=== PATIENT | female | born 1940 | race Caucasian/White ===

== ENCOUNTER 2016-07-10 23:13 | Inpatient (IN) | payer MEDICARE ==
[~2016-07-10] VITALS: Ht 162.5 cm; Wt 59.0 kg
--- NOTE | ~2016-07-10 | PR ---
[place], [place] PROGRESS NOTE NAME: SERAFIN CHAPMAN UNIT #: [id number] ROOM: 310 DOCTOR: NERISSA GORDON BIRTHDATE: [birth year] DOS: 07/14/2016 SUMMARY OF VISIT: The patient was assessed in the dining room where she was sitting in a Hue chair waiting for breakfast. Her only complaint was that she wanted a pillow behind her back, which the garcia milieu accommodated. No voiced complaints from nursing other than the fact that she is having some Dopplers done of her lower extremities. MENTAL STATUS: She is alert and oriented to person, place, I do not think time. Very pleasant, but exceptionally confused. No overt signs of auditory or visual hallucinations, delusions or paranoia. PLAN: She is currently on 9.5 mg of Exelon and Remeron 15 mg at bedtime. I added a low dose Latuda to help with some of her agitation, anxiety and treatment resistant depression, this seems to have helped. Goal is to continue titrating the Exelon to the maximum dose. I will evaluate her tomorrow to see if this would be appropriate to go ahead and increase. BOYD GORDON CNP CM:PNTRANS [phone] NERISSA GORDON 07/14/16 1008 interface
--- NOTE | ~2016-07-10 | PR ---
[place], [place] PROGRESS NOTE NAME: SERAFIN CHAPMAN UNIT #: [id number] ROOM: 310 DOCTOR: NERISSA GORDON BIRTHDATE: [birth year] DOS: 07/13/2016 SUMMARY OF VISIT: The patient was assessed in her room where she was lying in bed. The patient states that she did not sleep good last night, was a little bit irritable initially, but once I continued to be pleasant with her and engaged her in conversation, her mood did change. Nursing did note that she was up all night and is easily agitated. The patient admits to just being overwhelmed, worried, agitated. MENTAL STATUS: She is alert and oriented to person and place, I do not know about time at this point in time. She was very limited in her responses. No overt signs of auditory or visual hallucinations, delusions or paranoia. PLAN: I am going to continue with the current dementia medication that she is on. The Exelon was just increased yesterday to 9.5 mg every day. We will continue with that. She is also getting Remeron 15 mg at bedtime, which is helping with the depression and sleep and continue to stimulate her appetite. I am going to add a low dose Latuda 40 mg at bedtime to help some of her agitation, anxiety and treatment resistant depression. We will continue to try to engage in individual and garcia milieu therapy with the plan to discharge once stable. BOYD GORDON CNP CM:PNXENIA [id number] NERISSA GORDON 07/13/16 1025 interface
--- NOTE | ~2016-07-10 | DS ---
[place], [place] DISCHARGE SUMMARY NAME: SERAFIN CHAPMAN UNIT #: [id number] ROOM: 310 DOCTOR: DARCY WYNNE MD BIRTHDATE: [birth year] DOS: 07/19/2016 CHIEF COMPLAINT: "I think I have been here 2 or 3 days. I slept better, thank you." HISTORY OF PRESENT ILLNESS: This is a 75-year-old white female who was brought into [facility] by the [facility]. The patient had EMS called on her because she was found in the cold crawling up a hill. She eventually went to a neighbor's porch, asked where her children lived and asked for some money because she was so disorganized and disoriented. They did call the police department on her and they brought her into the Emergency Room to be evaluated. Once in the Emergency Room, she was found to be grossly delusional and very confused. Because of the severity of her mental compromise, it was felt that inpatient stabilization was warranted and she was ultimately admitted to the [facility] for further evaluation. SUMMARY OF HOSPITAL COURSE: The patient was admitted to the unit where she was started on Remeron as an antidepressant with 15 mg at night, being the starting dose and target dose. Additionally, she was started on Exelon patch 4.6 mg a day and this was very gradually increased throughout her stay to 13.3 mg a day. Because she was markedly delusional, Latuda 40 mg a day was started and it was increased to 60 mg a day to stabilize her mood, to decrease the psychosis and to aid sleep. With the utilization of these medicines, her sleep normalized, her mood improved, her delusions discontinued. She tolerated these medicines well without any apparent side effects and became very bright and pleasant on the unit. She remained grossly confused; however, she did require a great deal of assistance with ADLs and with remembering her medications. Because of the severity of her cognitive compromise, emergency guardianship was obtained and the guardian did decide to attempt placement into a long-term care facility. Eventually, [facility] was chosen. The patient had improved readily and enough that this was then undertaken. MENTAL STATUS AT DISCHARGE: The patient is alert and oriented to self, place and that she knows she is in the hospital, but she does not know which one and she could not tell how long she has been here. She was bright and pleasant upon approach. There is no hypomania or theodore. There were no overt auditory or visual hallucinations. No delusions, no paranoia. Short-term memory was exceedingly poor, otherwise she was fairly intact. FINAL DIAGNOSES: Major depression, recurrent with psychotic features and Alzheimer's dementia. PLAN: The patient will be discharged to [facility], her prescriptions have been printed and I will follow up on her admission there. [place], [place] DISCHARGE SUMMARY NAME: SERAFIN CHAPMAN UNIT #: [id number] ROOM: 310 DOCTOR: DARCY WYNNE MD BIRTHDATE: [birth year] DARCY WYNNE MD CM:DISCHOSMEL [id number] DARCY WYNNE MD 07/19/16 1032 interface
--- NOTE | ~2016-07-10 | PR ---
[place], [place] PROGRESS NOTE NAME: SERAFIN CHAPMAN UNIT #: [id number] ROOM: 310 DOCTOR: DARCY WYNNE MD BIRTHDATE: [birth year] DOS: 07/18/2016 CHIEF COMPLAINT: "Oh is at breakfast time, well thank you." SUMMARY OF THE VISIT: The patient was interviewed as she rested quietly in bed. She awoke and engaged readily in conversation, very superficial. She acted as if she did not know who I was. She could not tell me how long she has been here and then when asked again, she said it has been many weeks. She did request that I would be able to send her home and it was totally unaware that she had come from any type of long-term care facility. MENTAL STATUS: She is alert and oriented to person, possibly place, but not time. Mood does seem to be trending towards euthymia. Affect is more appropriate. There are no symptoms of hypomania or theodore. There are no overt auditory or visual hallucinations. No delusions, no paranoia. Short term memory is poor, otherwise she is intact. PLAN: I have already maximized the dose of Exelon patch to 13.3 mg daily. I will now begin to augment with Namenda starting at 5 mg a day and targeting 20 mg a day to improve her overall ability to manage ADLs, behavior and cognition. Engage in individual and garcia milieu therapy, returning to the least restrictive environment. DARCY WYNNE MD CM:PNTRANS [phone] DARCY WYNNE MD 07/18/16 1043 interface
--- NOTE | ~2016-07-10 | PR ---
[place], [place] PROGRESS NOTE NAME: SERAFIN CHAPMAN UNIT #: [id number] ROOM: 310 DOCTOR: NERISSA GORDON BIRTHDATE: [birth year] DOS: 07/16/2016 SUMMARY OF VISIT: The patient assessed in the dining room where she engaged in conversation. She asked when we thought she might be able to get out of here and then she also asked for a fresh cup of black coffee. No voiced complaints from nursing other than that she does have mild cough and little diaphoretic this morning. I have asked that the hospitalist round on her to evaluate. MENTAL STATUS: She is alert and oriented to person and place, not time. Very pleasant, but confused. No overt signs of auditory or visual hallucinations, delusions, paranoia, theodore or hypomania. PLAN: I am going to go ahead and increase her Exelon to the maximum dose. We will continue to try to engage in individual and garcia milieu therapy with the plan to discharge once psychologically stable. BOYD GORDON CNP CM:PNTRANS [id number] NERISSA GORDON 07/16/16 0945 interface
--- NOTE | ~2016-07-10 | WRIGHTHP ---
[place], [place] PATIENT HISTORY AND PHYSICAL EXAM NAME: SERAFIN CHAPMAN UNIT #: [id number] ROOM: 310 DOCTOR: DARCY WYNNE MD BIRTHDATE: [birth year] DOS: 07/11/2016 CHIEF COMPLAINT: "I think I have been here 2 or 3 days. I slept better, thank you." HISTORY OF PRESENT ILLNESS: This is a 75-year-old white female who was brought into [facility], sent in by [facility] police officers who called EMS because the patient was out in the cold, crawling up the hill. She was found on a neighbor's porch asking where her children lived and also asking for money. She was very disoriented and confused and was not making sense. Because of her severe altered mental status, it was felt that she represented a significant harm to self because she could not meet her needs and was not properly dressed for the weather. She is admitted now to rule out organic factors to attempt to stabilize on medication and determine the best possible placement options when she is medically stable. PAST MEDICAL HISTORY: Limited due to the fact that the patient is a poor historian. MENTAL STATUS: The patient is alert and oriented to self, possibly place, and she knows she is in the hospital, but she could not tell me accurate how long she had been here. She was not certain of the date. She was very perplexed and bewildered. Most of her responses tended to be short and simple and at times evasive. There does seem to be some depression and anxiety noted. There is no theodore or hypomania. There are no gross psychotic symptoms. Short-term memory is extremely poor and she processes slowly. DIAGNOSIS: Major depression, recurrent, rule out dementia, rule out other organic factors. PLAN: The patient's screening examination shows her to have a low vitamin D level. I will start her on vitamin D 50,000 International Units weekly. She has been started on Remeron as an antidepressant at 15 mg at night with good results already. Also, have started her on Exelon patch. We will consider gradually titrating this upward to its maximum dose of 13.3 mg a day and ultimately augmenting with Namenda to increase its effectiveness. We will engage in individual and garcia milieu activity with the ultimate plan to then discharge to the least restrictive environment once we know that she is medically stable. [place], [place] PATIENT HISTORY AND PHYSICAL EXAM NAME: SERAFIN CHAPMAN UNIT #: [id number] ROOM: 310 DOCTOR: DARCY WYNNE MD BIRTHDATE: [birth year] DARCY WYNNE MD CM:HISPHYS:PATIENT HISTORY AND PHYSICAL EXAMINATION 9 0 DARCY WYNNE MD 07/11/16820 interface
--- NOTE | ~2016-07-10 | CON ---
[place], [place] REPORT OF CONSULTATION NAME: SERAFIN CHAPMAN UNIT #: [id number] ROOM: 310 DOCTOR: BUD MAGAÑA III, DPM BIRTHDATE: [birth year] DOS: 07/13/2016 TIME OF DICTATION: 6:10 p.m. CHIEF COMPLAINT: Bilateral ankle ulcerations and routine foot care. HISTORY OF PRESENT ILLNESS: This is a 75-year-old female who was admitted to [facility] [place] [facility] with severe altered mental status. The patient is currently being seen at the behavioral medicine floor. PAST MEDICAL HISTORY: Significant for, 1. Depression. 2. Dementia. 3. Psychosis. 4. Lower leg edema. PAST SURGICAL HISTORY: None reported. SOCIAL HISTORY: Does not use alcohol or illicit drug use, nonsmoker. FAMILY HISTORY: Mother at age 80 from a myocardial infarction. Father at age 80 of old age. ALLERGIES: None. MEDICATIONS: Please refer to medication list. PHYSICAL EXAMINATION: VASCULAR: DP and PT pulses are palpable, CFT within normal limits. The patient has +1 pitting edema appreciated through bilateral lower extremities. DERMATOLOGIC: The patient has thickened, mycotic, incurvated, painful nails 1 through 5 bilateral with subungual debris noted. She also has some superficial ulcerations appreciated to bilateral ankles laterally as well as posterior lateral. Wounds appear very superficial. There is some mild erythema; however, I feel that this is more from chronic edema and more venous than any true infection components. NEUROLOGIC: Intact protective sensation. No gross motor deficits. ORTHO: Muscle strength is maintained. Negative Homans', negative calf pain. LABORATORY DATA: White blood cell count 5.8, hemoglobin 11.6, hematocrit 35.4. ASSESSMENT: 1. Venous insufficiency with chronic lower leg edema. 2. Superficial venous ulcerations appreciated bilateral lower extremities. 3. Pain in limb. 4. Onychomycosis. TREATMENT PLANS AND RECOMMENDATIONS: Findings as well as prognosis were discussed in detail with the patient. All questions were answered to her apparent satisfaction. This is a 75-year-old female admitted to the [place], [place] REPORT OF CONSULTATION NAME: SERAFIN CHAPMAN UNIT #: [id number] ROOM: 310 DOCTOR: BUD MAGAÑA III, DPM BIRTHDATE: [birth year] [facility] with altered mental status, who is seen at bedside for routine foot care as well as lower leg edema and venous insufficiency. The patient appears to have nails 1 through 5 bilateral were debrided in length and thickness without incident. She did have a lower extremity ultrasound study to the left lower extremity, which showed no signs of DVT. We will order an updated ultrasound for the right lower extremity. I do not feel that the patient needs antibiotics at this time. I think this is more secondary to chronic edema and more secondary to chronic edema and venous insufficiency. However, leave this up to medicine. We will order updated ultrasound and plan to apply Unna boot tomorrow as long as studies are negative. The patient is in agreement with plan. BUD MAGAÑA III, DPM CM:CONSTR:REPORT OF CONSULTATION 1814 07/14/16 0158 interface
--- NOTE | ~2016-07-10 | PR ---
[place], [place] PROGRESS NOTE NAME: SERAFIN CHAPMAN [facility] #: [id number] UNIT #: [id number] ROOM: 310 DOCTOR: MONTSE HOUGH DPM BIRTHDATE: [birth year] DOS: 07/14/2016 SUBJECTIVE: The patient presents for followup of ulceration in lateral left ankle and edema, lymphedema of both lower extremities. OBJECTIVE: Pedal pulses are diminished. Capillary refill time diminished. Decreased hair growth. Decreased skin temperature. Edema, lymphedema of both lower extremities. Venous ulceration of lateral left ankle with localized erythema and serous drainage. No signs of deep sinus tract. ASSESSMENT: Venous insufficiency with edema, lymphedema of bilateral lower extremities, venous ulceration of lateral left ankle. PLAN: Evaluation and management. Ordered Bactroban with Telfa gauze dressing lateral left ankle daily and Tubigrip both lower extremities. I will reassess the patient early next week, possible Unna boots if warranted, but we will hold off on the Unna boots at this time due to the patient's arterial flow and need for daily dressing to the serous draining ulceration of the lateral ankle. MONTSE HOUGH DPM CM:TAIWO 121 10 MONTSE HOUGH DPM 07/14/161810 interface
--- NOTE | ~2016-07-10 | PR ---
[place], [place] PROGRESS NOTE NAME: SERAFIN CHAPMAN UNIT #: [id number] ROOM: 310 DOCTOR: NERISSA GORDON BIRTHDATE: [birth year] DOS: 07/17/2016 CHIEF COMPLAINT: "Good morning, how are you." SUMMARY OF VISIT: The patient was assessed in the hallway where she was wheeling herself up the herron. Staff notes that she ambulated a lot yesterday, then was able to be physically exhausted and sleep really well last night. The patient is very pleasant, engaging in conversation. She did ask if she was going to go home again today. My only concern is when she said "well, I think my parents are coming to visit." It should be noted that this is a 75-year-old female, I am not sure if her parents are still living, but that she continued to state that "well, I am going to be going home with them, right" and then she "oh wait, I think I have my own apartment." So I am not sure if this is more of a delusion or just part of her dementia, but there are no behaviors. She is pleasantly confused at times. MENTAL STATUS: Alert and oriented to person, place, not time. Again, pleasantly confused. Mood is euthymic. Affect is appropriate. There are no overt signs of auditory or visual hallucinations, paranoia, theodore, or hypomania. PLAN: I increased her Exelon to the maximum dose yesterday. She is tolerating this. I am going to go ahead and bump up the Latuda to 60 mg at bedtime for now and see how she does. We will continue to try to engage in individual and garcia milieu therapy and plan to discharge once stable. BOYD GORDON CNP CM:PNXENIA 1 08 NERISSA GORDON 07/17/161208 interface
--- NOTE | ~2016-07-10 | CON ---
[place], [place] REPORT OF CONSULTATION NAME: SERAFIN CHAPMAN UNIT #: [id number] ROOM: 310 DOCTOR: MERLE DE LA O ED.D (LISA) BIRTHDATE: [birth year] DOS: 07/11/2016 HISTORY OF PRESENT ILLNESS: The patient is a 75-year-old female referred by Dr. Wynne for competency evaluation. At the present time, this patient is on Behavioral Health Unit at [facility]. She does state she is and has 2 adult children. She believes they live in [place], [place]. She is in contact with her ex-. She states she worked at [email or web address] and she states she is currently employed at [employer] here in [place]. This is not accurate and she is not working at this time. Her family physician is Dr. Lara, and her medical history is pertinent for vitamin D deficiency, altered mental status and dementia. Her medications include Remeron, vitamin D, Exelon. She denies any substance abuse issues whatsoever. She states she is at [facility] and it is June. She did not know the year, however. She initially guessed and stated it was 2011, then she stated it was 2019. She finally admitted she had no idea what the year was. I asked about the president, she said it was Rasheed Hampton. She is unaware of any current events and has a great deal of difficulty with her cognitive decision making processes. In my opinion, this patient is clearly not competent to make informed healthcare decisions and she needs a guardian. I did complete paperwork for guardianship and I left paperwork for Dr. Wynne to sign for an emergency guardianship. DIAGNOSES: 1. Major neurocognitive disorder - Alzheimer's disease. 2. Major depressive disorder. RECOMMENDATIONS: In my opinion, this patient needs a guardianship established. Thank you very much for this referral. MERLE DE LA O ED.D CM:CONSTR:REPORT OF CONSULTATION 1729 07/12/16 0223 interface DARCY WYNNE MD
--- NOTE | ~2016-07-10 | PR ---
[place], [place] PROGRESS NOTE NAME: SERAFIN CHAPMAN UNIT #: [id number] ROOM: 310 DOCTOR: NERISSA GORDON BIRTHDATE: [birth year] DOS: 07/15/2016 SUMMARY OF VISIT: The patient was assessed in the dining room where she was sitting in a wheelchair. She engaged readily in conversation. I noted that her wheelchair was different than what she was in yesterday and she smiled and she much more comfortable, so she does remember our conversation yesterday where she did not like the Hue chair because of the angle on the back, no voiced complaints and no complaints per nursing. MENTAL STATUS: She is alert and oriented to person, place, not time. Very pleasant, very confused. No overt signs of auditory or visual hallucinations, delusions, paranoia, theodore or hypomania. PLAN: Currently on 9.5 mg of Exelon, 15 mg of Remeron. I did add a low dose Latuda that seems to be helping, let me see how the Latuda does over the next 24 hours as long as she is tolerating it. I most likely will continue to titrate up the Exelon to the maximum dose. We will continue to try to engage in individual and garcia milieu therapy and discharge when stable. BOYD GORDON CNP CM:PNXENIA 8 0 NERISSA GORDON 07/15/1632 interface
[~2016-07-10 23:13] MED LIST: LEVAQUIN750 M1 PO; VITAMIN D50000 I3 PO
[2016-07-11 00:32] VITALS: BP 136/61
[2016-07-11 01:00] VITALS: BP 136/61
[2016-07-11 08:12] VITALS: BP 135/64
[2016-07-11 20:00] VITALS: BP 157/58
[2016-07-12 08:03] LABS: HEMOGLOBIN A1c 4.4 % (4.8-5.6)
[2016-07-12 08:05] VITALS: BP 144/62
[2016-07-12 08:06] LABS: CHOLESTEROL 183 mg/dL (<200); HDL CHOLESTEROL 88 mg/dl (40-60); LDL CHOLESTEROL 80 mg/dL (9-159); TRIGLYCERIDES 76 mg/dl (<150); VLDL CHOLESTEROL 15 mg/dL (6-40)
[2016-07-12 08:29] LABS: FOLIC ACID 7.47 ng/mL (>5.38); VITAMIN D, 25-HYDROXY 29.3 ng/mL (30-100)
[2016-07-12 20:18] VITALS: BP 144/80
[2016-07-13 07:12] LABS: BASO % 0.2 % (0.0-1.0); HEMATOCRIT 35.4 % (37.0-47.0); HEMOGLOBIN 11.6 g/dl (12.0-16.0); LYMPH # 0.4 10*3/uL (1.3-4.4); LYMPH % 6.4 % (27.0-41.0); MEAN CELL VOLUME 93.9 fl (81.0-99.0); MEAN CORPUSCULAR HGB 30.8 pg (27.0-31.0); MEAN CORPUSCULAR HGB CONC 32.8 g/dl (33.0-37.0); MEAN PLATELET VOLUME 9.9 fl (9.6-12.3); MONO # 0.5 10*3/uL (0.1-1.0); MONO % 8.1 % (3.0-9.0); NEUT # 4.9 10*3/uL (2.3-7.9); NEUT % 84.6 % (47.0-73.0); PLATELET COUNT AUTOMATED 288 10*3/uL (130-400); RED BLOOD COUNT 3.77 10*6/uL (4.10-5.10); RED CELL DISTRI WIDTH 14.6 % (0-14.5); WHITE BLOOD COUNT 5.8 10*3/uL (4.8-10.8)
[2016-07-13 07:49] LABS: ALBUMIN 2.6 gm/dl (3.1-4.5); BILIRUBIN, TOTAL 0.4 mg/dl (0.2-1.0); BUN 14 mg/dl (7-24); CARBON DIOXIDE 28 mmol/L (21-32); CHLORIDE 104 mmol/L (98-107); EST GLOM FILT AFRICAN AMERICAN > 60 ml/min; GLUCOSE 92 mg/dL (65-99); POTASSIUM 3.3 mmol/L (3.5-5.1); SGOT/AST 10 IU/L (3-35); SGPT/ALT 15 U/L (12-78); SODIUM 141 mmol/L (136-145); TOTAL PROTEIN 5.4 gm/dL (6.4-8.2)
[2016-07-13 07:50] LABS: ALKALINE PHOSPHATASE 94 U/L (45-117)
[2016-07-13 07:57] VITALS: BP 142/73
[2016-07-13 20:08] VITALS: BP 139/67
[2016-07-14 08:04] VITALS: BP 132/73
[2016-07-14 20:28] VITALS: BP 126/70
[2016-07-15 08:40] VITALS: BP 117/58
[2016-07-15 20:32] VITALS: BP 106/77
[2016-07-16 08:05] VITALS: BP 150/59
[2016-07-16 20:02] VITALS: BP 126/55
[2016-07-17 08:16] VITALS: BP 124/62
[2016-07-17 20:09] VITALS: BP 130/56
[2016-07-18 08:02] VITALS: BP 136/57
[2016-07-18 20:00] VITALS: BP 123/61
[2016-07-19 08:11] VITALS: BP 133/59
[2016-07-19] MEDS ORDERED: LATU60TA PO (09:27)
[2016-07-19] MEDS ORDERED: MIRTAZAPINE15 M2 PO (09:27)
[2016-07-19] MEDS ORDERED: NAMENDA-5 PO (09:27)
[2016-07-19] MEDS ORDERED: EXELON13.3 MG/21 T (09:27)
[2016-07-19] MEDS ORDERED: VITAMIN D50000 I3 PO (09:27)
== END 2016-07-19 12:11 | disposition other institution (70) | DRG 56 ==
LOC: 3N 23:13
PROVIDERS: Internal Medicine; Nurse Practitioner Adult Health
DX: G30.9 Alzheimer's disease, unspecified (principal); G93.40 Encephalopathy, unspecified; L03.119 Cellulitis of unspecified part of limb; F02.81 Dementia in other diseases classified elsewhere, unspecified severity, with behavioral disturbance; F33.3 Major depressive disorder, recurrent, severe with psychotic symptoms; D64.9 Anemia, unspecified; B35.1 Tinea unguium; F23 Brief psychotic disorder; L97.929 Non-pressure chronic ulcer of unspecified part of left lower leg with unspecified severity; L97.919 Non-pressure chronic ulcer of unspecified part of right lower leg with unspecified severity; E78.5 Hyperlipidemia, unspecified; H40.9 Unspecified glaucoma; I87.2 Venous insufficiency (chronic) (peripheral); Z82.49 Family history of ischemic heart disease and other diseases of the circulatory system